=== PATIENT | male | born 1975 | race Caucasian/White ===

== ENCOUNTER 2018-11-14 21:15 | Emergency (ER) | payer OTHER ==
[~2018-11-14] VITALS: Ht 170.2 cm; Wt 95.3 kg
[2018-11-14 21:24] VITALS: BP 135/80
--- NOTE | 2018-11-14 21:26 | NUR ---
TO LOBBY A/W BED, AMBULATORY
--- NOTE | 2018-11-14 22:13 | NUR ---
PT PRESENTS TO ED WITH RUQ ABD PAIN 5/10 WITH NAUSEA X12 HRS. HX IBS. ABD SOFT AND NON-TENDER. NO REBOUND TENDERNESS. X4 ABD QUADRANT BOWEL SOUNDS PRESENT. STATES FEELING LIKE HIS RUQ ABD IS EDEMETOUS. NO HARD MASSES FELT. VSS. POSITOINED IN BED FOR COMFORT. ER MD AWARE. CONTINUE TO MONITOR.
--- NOTE | 2018-11-14 22:13 | NUR ---
PT AMBULATED TO BED 1.
[2018-11-15 00:14] VITALS: BP 120/74
--- NOTE | 2018-11-15 00:14 | NUR ---
Patient discharged with v/s stable. Written and verbal after care instructions given and explained. Patient alert, oriented and verbalized understanding of instructions. Ambulatory with steady gait. All questions addressed prior to discharge. ID band removed. Patient advised to follow up with PMD. Rx of LACTULOSE AND MINERAL OIL WAS given. Patient educated on indication of medication including possible reaction and side effects. Opportunity to ask questions provided and answered.
== END 2018-11-15 00:14 | disposition home or self-care (01) ==
LOC: MED 21:15
DX: K59.00 Constipation, unspecified (principal)
CPT/HCPCS: 74022; 99283

== ENCOUNTER 2022-04-14 12:17 | Emergency (ER) | payer BC, OTHER ==
[~2022-04-14] VITALS: Ht 170.2 cm; Wt 81.9 kg
[2022-04-14 12:29] VITALS: BP 113/79
[2022-04-14 14:02] LABS: APPEARANCE,URINE CLEAR (CLEAR); BILIRUBIN,URINE NEGATIVE (NEGATIVE); BLOOD, URINE NEGATIVE (NEGATIVE); COLOR,URINE YELLOW (YELLOW); LEUKOCYTE ESTERASE ,URINE NEGATIVE (NEGATIVE); NITRITE, URINE NEGATIVE (NEGATIVE); PH,URINE 7.5 (5.0-9.0); UGLUCOSE NEGATIVE (NEGATIVE)
[2022-04-14 14:12] LABS: BASOPHILS % (AUTO) 0.5 % (0.0-2.0); EOSINOPHILS # (AUTO) 0.1 K/uL (0-0.4); HEMATOCRIT 45.4 % (36-52); HEMOGLOBIN 15.5 g/dL (12.0-18.0); LYMPHOCYTES # (AUTO) 2.5 K/uL (2.0-11.5); LYMPHOCYTES % (AUTO) 35.9 % (20.5-51.1); MEAN CORPUSCULAR HEMOGLOBIN 30 pg (27-31); MEAN CORPUSCULAR HGB CONC 34 g/dL (33-37); MEAN CORPUSCULAR VOLUME 88.4 fL (80-94); MONOCYTES # (AUTO) 0.4 K/uL (0.8-1.0); NEUTROPHILS % (AUTO) 56.6 % (42.2-75.2); PLATELET COUNT (AUTO) 208 K/uL (140-450); RED BLOOD CELL COUNT(AUTO) 5.14 MIL/uL (4.20-6.10); RED CELL DISTRIBUTION WIDTH 12.6 % (11.6-13.7); WHITE BLOOD COUNT (AUTO) 7.1 K/uL (4.8-10.8)
[2022-04-14 14:28] LABS: ANION GAP 11.2 (8-16); CARBON DIOXIDE 31.9 mmol/L (21-32); CREATININE 1.1 mg/dL (0.6-1.3); POTASSIUM 4.1 mmol/L (3.5-5.1); TOTAL BILIRUBIN 1.8 mg/dL (0.0-1.0)
--- NOTE | 2022-04-14 14:51 | NUR ---
PT TO CT VIA WC
[2022-04-14] MEDS ORDERED: KETOROLAC 15 MG/ML VIAL IVP ONE (15:00)
--- NOTE | 2022-04-14 15:43 | NUR ---
ct already done, pt refuses toradol notified
[2022-04-14] MEDS ORDERED: METR-435 PO (15:44)
[2022-04-14] MEDS ORDERED: CIPR500T4 PO (15:44)
[2022-04-14 15:57] VITALS: BP 122/77
--- NOTE | 2022-04-14 15:58 | NUR ---
Patient discharged with v/s stable. Written and verbal after care instructions given and explained. Patient verbalized understanding. Ambulatory with steady gait. All questions addressed prior to discharge. Advised to follow up with PMD. rx given. pain 07/31
== END 2022-04-14 15:57 | disposition home or self-care (01) ==
LOC: MED 12:17
DX: K57.92 Diverticulitis of intestine, part unspecified, without perforation or abscess without bleeding (principal); F41.9 Anxiety disorder, unspecified
CPT/HCPCS: 36415; 74177; 80053; 81003; 83690; 85025; 99285; Q9967; 81025; J1885

== ENCOUNTER 2022-04-19 17:33 | Emergency (ER) | payer BC ==
[~2022-04-19] VITALS: Ht 170.2 cm; Wt 79.4 kg
[~2022-04-19 17:33] MED LIST: CIPR500T4 PO; METR-435 PO
[2022-04-19 17:44] VITALS: BP 130/87
--- NOTE | 2022-04-19 17:47 | NUR ---
PT AMB TO BED 3
--- NOTE | 2022-04-19 17:57 | NUR ---
DR. ANNA BEDSIDE TO EXAM PT.
[2022-04-19 19:00] LABS: BASOPHILS % (AUTO) 0.5 % (0.0-2.0); EOSINOPHILS % (AUTO) 0.6 % (0.0-4.0); HEMATOCRIT 44.9 % (36-52); HEMOGLOBIN 15.4 g/dL (12.0-18.0); LYMPHOCYTES # (AUTO) 2.2 K/uL (2.0-11.5); MEAN CORPUSCULAR HEMOGLOBIN 30 pg (27-31); MEAN CORPUSCULAR HGB CONC 34 g/dL (33-37); MEAN CORPUSCULAR VOLUME 87.7 fL (80-94); MONOCYTES # (AUTO) 0.5 K/uL (0.8-1.0); MONOCYTES % (AUTO) 7.1 % (1.7-9.3); NEUTROPHILS # (AUTO) 4.2 K/uL (1.8-7.7); NEUTROPHILS % (AUTO) 60.8 % (42.2-75.2); PLATELET COUNT (AUTO) 219 K/uL (140-450); RED BLOOD CELL COUNT(AUTO) 5.11 MIL/uL (4.20-6.10); RED CELL DISTRIBUTION WIDTH 12.6 % (11.6-13.7); WHITE BLOOD COUNT (AUTO) 6.9 K/uL (4.8-10.8)
[2022-04-19 19:13] LABS: APPEARANCE,URINE CLEAR (CLEAR); BILIRUBIN,URINE NEGATIVE (NEGATIVE); BLOOD, URINE NEGATIVE (NEGATIVE); COLOR,URINE YELLOW (YELLOW); LEUKOCYTE ESTERASE ,URINE NEGATIVE (NEGATIVE); NITRITE, URINE NEGATIVE (NEGATIVE); UGLUCOSE NEGATIVE (NEGATIVE)
--- NOTE | 2022-04-19 19:22 | NUR ---
PT IS AWAKE AND ALERT. ALL NEEDS MET AT THIS TIME.
[2022-04-19 19:26] LABS: ALBUMIN 4.2 g/dL (3.4-5.0); ANION GAP 15.8 (8-16); ASPARTATE AMINOTRANSFERASE 30 U/L (15-37); CARBON DIOXIDE 28.8 mmol/L (21-32); CHLORIDE 99 mmol/L (98-107); GFR ARICAN-AMERICAN 103 mL/min (>90); GLUCOSE 86 mg/dL (74-106); LIPASE 75 U/L (73-393); POTASSIUM 3.6 mmol/L (3.5-5.1); SODIUM SERUM 140 mmol/L (136-145); TOTAL BILIRUBIN 1.8 mg/dL (0.0-1.0); UREA NITROGEN, BLOOD 7 mg/dL (7-18)
--- NOTE | 2022-04-19 20:00 | NUR ---
PT ASKED TO SPEAK TO FABIAN HOOD BEFORE CT SCAN. FABIAN AT BEDSIDE.
[2022-04-19 20:17] VITALS: BP 125/88
--- NOTE | 2022-04-19 20:17 | NUR ---
Patient discharged with v/s stable. Written and verbal after care instructions given and explained. Patient verbalized understanding. Ambulatory with steady gait. All questions addressed prior to discharge. Advised to follow up with PMD.
== END 2022-04-19 20:17 | disposition home or self-care (01) ==
LOC: MED 17:33
DX: K57.92 Diverticulitis of intestine, part unspecified, without perforation or abscess without bleeding (principal)
CPT/HCPCS: 36415; 71045; 80053; 81003; 83690; 84484; 85025; 93005; 99285

== ENCOUNTER 2022-04-22 15:02 | Emergency (ER) | payer BC ==
[~2022-04-22] VITALS: Ht 170.2 cm; Wt 78.9 kg
[2022-04-22 15:09] VITALS: BP 120/55
[2022-04-22] MEDS ORDERED: NACL 0.9% 1,000 ML IV ONE (15:20)
[2022-04-22] MEDS ORDERED: KETOROLAC 30 MG/ML VIAL IVP ONE (15:20)
--- NOTE | 2022-04-22 15:30 | NUR ---
PT CAME BACK FOR SAME REASON: IBS AND DIVERTICULITIS EXACUBATION.
[2022-04-22] MEDS ORDERED: PRED20TA5 PO (15:43)
[2022-04-22] MEDS ORDERED: ACET-8386 PO (15:43)
--- NOTE | 2022-04-22 16:54 | NUR ---
PER PT REQUEST. DR. EUGENE WENT TO BEDSIDE TO ANSWER THE QUESTIONS PT HAVE THEN Patient discharged with v/s stable. Written and verbal after care instructions given and explained. Patient verbalized understanding. Ambulatory with steady gait. All questions addressed prior to discharge. Advised to follow up with PMD.
[2022-04-22 16:56] VITALS: BP 124/72
== END 2022-04-22 16:56 | disposition home or self-care (01) ==
LOC: MED 15:02
DX: R10.31 Right lower quadrant pain (principal); K57.92 Diverticulitis of intestine, part unspecified, without perforation or abscess without bleeding
CPT/HCPCS: 96361; 96374; 99283; J1885; J7030

== ENCOUNTER 2022-04-26 02:10 | Emergency (ER) | payer BC ==
[~2022-04-26] VITALS: Ht 170.2 cm; Wt 78.0 kg
[~2022-04-26 02:10] MED LIST changes: +ACET-8386 PO; +PRED20TA5 PO
[2022-04-26 02:19] VITALS: BP 138/72
--- NOTE | 2022-04-26 02:42 | NUR ---
Blood for labwork drawn from left arm by doorperson or luggage porter. Patient tolerated well.
[2022-04-26 03:13] LABS: BASOPHILS % (AUTO) 0.7 % (0.0-2.0); EOSINOPHILS # (AUTO) 0.1 K/uL (0-0.4); EOSINOPHILS % (AUTO) 0.9 % (0.0-4.0); HEMATOCRIT 42.8 % (36-52); HEMOGLOBIN 14.8 g/dL (12.0-18.0); LYMPHOCYTES # (AUTO) 2.4 K/uL (2.0-11.5); LYMPHOCYTES % (AUTO) 37.6 % (20.5-51.1); MEAN CORPUSCULAR HEMOGLOBIN 30 pg (27-31); MEAN CORPUSCULAR HGB CONC 35 g/dL (33-37); MEAN CORPUSCULAR VOLUME 88.1 fL (80-94); MONOCYTES # (AUTO) 0.5 K/uL (0.8-1.0); MONOCYTES % (AUTO) 8.2 % (1.7-9.3); NEUTROPHILS # (AUTO) 3.4 K/uL (1.8-7.7); NEUTROPHILS % (AUTO) 52.6 % (42.2-75.2); PLATELET COUNT (AUTO) 216 K/uL (140-450); RED BLOOD CELL COUNT(AUTO) 4.86 MIL/uL (4.20-6.10); RED CELL DISTRIBUTION WIDTH 13.2 % (11.6-13.7); WHITE BLOOD COUNT (AUTO) 6.4 K/uL (4.8-10.8)
[2022-04-26 03:28] LABS: ANION GAP 12.2 (8-16); CARBON DIOXIDE 31.4 mmol/L (21-32); CREATININE 1.1 mg/dL (0.6-1.3); POTASSIUM 3.6 mmol/L (3.5-5.1); TOTAL BILIRUBIN 1.1 mg/dL (0.0-1.0)
--- NOTE | 2022-04-26 03:48 | NUR ---
PT TO BED 03.
[2022-04-26] MEDS ORDERED: KETOROLAC 60 MG/2 ML VIAL IM ONE (04:00)
--- NOTE | 2022-04-26 04:00 | NUR ---
ER physician at bedside examining patient. Patient A/Ox4, chest rise and fall symmetrical, no c/o pain or s/s of discomfort.
--- NOTE | 2022-04-26 04:40 | NUR ---
Patient A/Ox4, chest rise and fall symmetrical, patient reports 6/10 pain, ER physician ordered pain medication.
--- NOTE | 2022-04-26 05:20 | NUR ---
Patient A/Ox4, chest rise and fall symmetrical, no c/o pain or s/s of discomfort.
[2022-04-26] MEDS ORDERED: IBUP-2213 PO (05:38)
[2022-04-26] MEDS ORDERED: AMOX1TAB8 PO (05:38)
[2022-04-26] MEDS ORDERED: ONDA-188 PO (05:38)
--- NOTE | 2022-04-26 06:30 | NUR ---
Patient A/Ox4, chest rise and fall symmetrical, no c/o pain or s/s of discomfort.
--- NOTE | 2022-04-26 07:05 | NUR ---
Patient A/Ox4, chest rise and fall symmetrical, no c/o pain or s/s of discomfort.
--- NOTE | 2022-04-26 07:13 | NUR ---
Patient states pain is "3/10, tolerable."
--- NOTE | 2022-04-26 07:23 | NUR ---
Change of shift report given to AM Shift Nurse Karena. AM Shift Nurse Karena verbalized understanding of report, no further questions.
[2022-04-26 07:28] VITALS: BP 146/87
--- NOTE | 2022-04-26 08:39 | NUR ---
Patient discharged with v/s stable. Written and verbal after care instructions given and explained. Patient alert, oriented and verbalized understanding of instructions. Ambulatory with steady gait. All questions addressed prior to discharge. ID band removed. Patient advised to follow up with PMD. Rx of AMOXICILLIN/POTASSIUM CLAV, IBUPROFEN, ONDANSETRON PO given. Opportunity to ask questions provided and answered.
--- NOTE | 2022-04-26 08:40 | NUR ---
The patient's care was reviewed and supervised by Hermelinda Aquino RN.
== END 2022-04-26 08:38 | disposition home or self-care (01) ==
LOC: MED 02:10
DX: K92.2 Gastrointestinal hemorrhage, unspecified (principal); J45.909 Unspecified asthma, uncomplicated; Z79.899 Other long term (current) drug therapy
CPT/HCPCS: 36415; 74176; 80053; 85025; 86886; 86900; 86901; 96372; 99284; J1885